=== PATIENT | female | born 1995 | race Caucasian/White ===

== ENCOUNTER 2020-07-09 10:17 | Emergency (ER) | payer MEDICAID ==
[~2020-07-09] VITALS: Ht 157.5 cm; Wt 90.3 kg
[2020-07-09 10:21] VITALS: BP 120/78
[2020-07-09 10:56] LABS: APPEARANCE,URINE HAZY (CLEAR); BILIRUBIN,URINE NEGATIVE (NEGATIVE); BLOOD, URINE 3+ (NEGATIVE); COLOR,URINE YELLOW (YELLOW); LEUKOCYTE ESTERASE ,URINE 2+ (NEGATIVE); NITRITE, URINE NEGATIVE (NEGATIVE); UGLUCOSE NEGATIVE (NEGATIVE)
[2020-07-09 10:58] LABS: BASOPHILS # (AUTO) 0.1 K/uL (0.00-0.22); BASOPHILS % (AUTO) 0.8 % (0.0-2.0); EOSINOPHILS # (AUTO) 0.2 K/uL (0-0.4); EOSINOPHILS % (AUTO) 2.1 % (0.0-4.0); HEMATOCRIT 38.7 % (36-48); HEMOGLOBIN 13.2 g/dL (12.0-16.0); LYMPHOCYTES # (AUTO) 2.2 K/uL (2.5-16.5); LYMPHOCYTES % (AUTO) 24.5 % (20.5-51.1); MEAN CORPUSCULAR HEMOGLOBIN 30 pg (27-31); MEAN CORPUSCULAR HGB CONC 34 g/dL (33-37); MEAN CORPUSCULAR VOLUME 87.4 fL (80-94); MONOCYTES # (AUTO) 0.7 K/uL (0.8-1.0); MONOCYTES % (AUTO) 7.3 % (1.7-9.3); NEUTROPHILS # (AUTO) 5.9 K/uL (1.8-7.7); NEUTROPHILS % (AUTO) 65.3 % (42.2-75.2); PLATELET COUNT (AUTO) 250 K/uL (140-450); RED BLOOD CELL COUNT(AUTO) 4.43 MIL/uL (4.20-5.40); RED CELL DISTRIBUTION WIDTH 12.6 % (11.6-13.7); WHITE BLOOD COUNT (AUTO) 9.1 K/uL (4.8-10.8)
[2020-07-09 11:11] LABS: ALBUMIN 3.7 g/dL (3.4-5.0); ANION GAP 13.2 (8-16); CARBON DIOXIDE 28.6 mmol/L (21-32); CREATININE 0.7 mg/dL (0.6-1.3); POTASSIUM 3.8 mmol/L (3.5-5.1); TOTAL BILIRUBIN 0.5 mg/dL (0.0-1.0)
[2020-07-09 11:14] LABS: RBC,URINE 11-20 (MOD) /HPF (0-5)
[2020-07-09 11:15] LABS: URINE AMORPHOUS URATE 1+ /HPF (None Seen)
[2020-07-09 11:28] VITALS: BP 120/78
== END 2020-07-09 11:29 | disposition home or self-care (01) ==
LOC: MED 10:17
DX: N39.0 Urinary tract infection, site not specified (principal)
CPT/HCPCS: 36415; 80053; 81001; 81002; 81025; 82150; 83690; 84703; 85025; 87086; 99283

== ENCOUNTER 2021-07-09 19:45 | Observation (INO) | payer OTHER, SELFPAY ==
[~2021-07-09] VITALS: Ht 160 cm; Wt 94.8 kg
[2021-07-09 20:20] VITALS: BP 122/76
[2021-07-09] MEDS ORDERED: PNV91TAB8 PO (20:40)
== END 2021-07-09 20:48 | disposition home or self-care (01) ==
LOC: MLD 19:45
PROVIDERS: ADMIT Obstetrics & Gynecology; ATTEND Obstetrics & Gynecology
DX: O23.42 Unspecified infection of urinary tract in pregnancy, second trimester (principal); Z3A.21 21 weeks gestation of pregnancy
CPT/HCPCS: 59025; 81000; G0378

== ENCOUNTER 2023-02-28 15:57 | Emergency (ER) | payer OTHER ==
[~2023-02-28] VITALS: Ht 157.5 cm; Wt 95.3 kg
[~2023-02-28 15:57] MED LIST: PNV91TAB8 PO
[2023-02-28 16:23] VITALS: BP 116/80
--- NOTE | 2023-02-28 16:28 | NUR ---
pt ambulatory to [facility] w steady gait.
--- NOTE | 2023-02-28 18:21 | NUR ---
MD RUVALCABA AT BEDSIDE FOR EVALUATION
[2023-02-28] MEDS ORDERED: ONDANSETRON 4 MG ODT PO ONE (18:25)
[2023-02-28] MEDS ORDERED: KETOROLAC 60 MG/2 ML VIAL IM ONE (18:25)
[2023-02-28] MEDS ORDERED: CIPR500T4 PO (18:29)
[2023-02-28] MEDS ORDERED: IBUP-2213 PO (18:29)
[2023-02-28] MEDS ORDERED: OMEP40EC24 PO (18:29)
[2023-02-28] MEDS ORDERED: ONDA8TAB87 PO (18:29)
--- NOTE | 2023-02-28 18:38 | NUR ---
Patient discharged with v/s stable. Written and verbal after care instructions given and explained. Patient alert, oriented and verbalized understanding of instructions. Ambulatory with steady gait. All questions addressed prior to discharge. ID band removed. Patient advised to follow up with PMD. Rx of CIPRO, MOTRIN, ZOFRAN given. Patient educated on indication of medication including possible reaction and side effects. Opportunity to ask questions provided and answered.
== END 2023-02-28 18:38 | disposition home or self-care (01) ==
LOC: MED 15:57
DX: N12 Tubulo-interstitial nephritis, not specified as acute or chronic (principal); R11.0 Nausea; Z79.899 Other long term (current) drug therapy
CPT/HCPCS: 81002; 81025; 96372; 99283; J1885; Q0162

== ENCOUNTER 2023-08-07 08:51 | Emergency (ER) | payer OTHER ==
[~2023-08-07] VITALS: Ht 157.5 cm; Wt 95.3 kg
[~2023-08-07 08:51] MED LIST changes: +CIPR500T4 PO; +IBUP-2213 PO; +OMEP40EC24 PO; +ONDA8TAB87 PO
[2023-08-07 08:56] VITALS: BP 126/66; PULSE 72; RESP 15; TEMP 97.8; O2SAT 97
[2023-08-07] MEDS ORDERED: KETOROLAC 60 MG/2 ML VIAL IM ONE (09:30)
[2023-08-07] MEDS ORDERED: ONDANSETRON 4 MG ODT PO ONE (09:30)
[2023-08-07] MEDS ORDERED: ONDA8TAB87 PO (09:40)
[2023-08-07] MEDS ORDERED: PSEU120T22 PO (09:40)
== END 2023-08-07 09:55 | disposition home or self-care (01) ==
LOC: MED 08:51
DX: J32.9 Chronic sinusitis, unspecified (principal); R11.0 Nausea; Z79.899 Other long term (current) drug therapy
CPT/HCPCS: 96372; 99283; J1885; Q0162